=== PATIENT | male | born 1995 | race Caucasian/White ===

== ENCOUNTER 2018-11-15 09:16 | Emergency (ER) | payer MEDICAID ==
--- NOTE | 2018-11-15 09:23 | EDPHY ---
H & P Stated Complaint: st Time Seen by Provider: 11/15/18 09:22 HPI/ROS: CHIEF COMPLAINT: Sore throat, referred to ED secondary to leukocytosis HISTORY OF PRESENT ILLNESS: The patient has had a several week history of sore throat. He was seen at urgent care found to be strep negative. He completed 10 days of antibiotics. After he stopped his antibiotics he had recurrent sore throat. He was seen at urgent care again yesterday and reportedly had a negative mono test. The patient was started on steroids. They contacted him today secondary to a leukocytosis which was noted on outpatient labs. REVIEW OF SYSTEMS: A comprehensive 10 point review of systems is otherwise negative aside from elements mentioned in the history of present illness. Source: Patient Exam Limitations: No limitations - Personal History Current Tetanus/Diphtheria Vaccine: Yes Current Tetanus Diphtheria and Acellular Pertussis (TDAP): Yes - Medical/Surgical History Hx Asthma: No Hx Chronic Respiratory Disease: No Hx Diabetes: No Hx Cardiac Disease: No Hx Renal Disease: No Hx Cirrhosis: No Hx Alcoholism: No Hx HIV/AIDS: No Hx Splenectomy or Spleen Trauma: No Other PMH: anxiety, - Social History Smoking Status: Never smoked - Physical Exam Exam: General Appearance: Alert, no distress Eyes: Pupils equal and round no pallor or injection ENT, Mouth: Minimal pharyngeal erythema, no peritonsillar swelling or mass, no stridor, no trismus Respiratory: There are no retractions, lungs are clear to auscultation Cardiovascular: Regular rate and rhythm Gastrointestinal: Abdomen is soft and nontender, no masses, bowel sounds normal Neurological: 5/5 strength noted all 4 extremities, normal neurologic examination Skin: Warm and dry, no rashes Musculoskeletal: Neck is supple nontender, no meningeal symptoms Extremities: symmetrical, full range of motion Constitutional: Initial Vital Signs Temperature (C) 36.9 C 11/15/18 09:19 Heart Rate 124 H 11/15/18 09:19 Respiratory Rate 16 11/15/18 09:19 Blood Pressure 101/79 11/15/18 09:19 O2 Sat (%) 97 11/15/18 09:19 O2 Delivery Mode Room Air Allergies/Adverse Reactions: No Known Allergies Allergy (Unverified 11/15/18 09:36) Home Medications: Medication Instructions Recorded Ibuprofen 11/15/18 Ranitidine HCl 11/15/18 Sertraline HCl 11/15/18 Medical Decision Making ED Course/Re-evaluation: The patient is nontoxic well-appearing. He had an IV established. He received a L normal saline. I reviewed his outpatient laboratory studies. The patient has minimal pharyngeal erythema without evidence of a peritonsillar mass or swelling. The patient does have a decrease in his white blood cell count today. The patient also recently started steroids for pharyngitis. The patient's liver function tests are within normal limits. The patient has no clinical evidence of meningitis. Patient has a normal venous lactic acid. He has a reassuring procalcitonin. Blood cultures have been ordered for completeness sake. I do feel the patient can continue to manage his symptoms as an outpatient. He will be discharged home with customary aftercare instructions and return precautions. The patient is advised to follow up with our on-call Ear Nose Throat physician for any ongoing symptoms. Differential Diagnosis: Differential diagnosis considered includes pharyngitis, mononucleosis, peritonsillar abscess, viral syndrome - Data Points Laboratory Results: Laboratory Results 11/15/18 09:40 11/15/18 09:40 11/15/18 11/15/18 11/15/18 10:55 09:40 09:40 WBC RBC Hgb Hct MCV MCH MCHC RDW Plt Count MPV Neut % (Auto) Lymph % (Auto) Faulkner % (Auto) Eos % (Auto) Baso % (Auto) Nucleat RBC Rel Count Absolute Neuts (auto) Absolute Lymphs (auto) Absolute Monos (auto) Absolute Eos (auto) Absolute Basos (auto) Absolute Nucleated RBC Immature Gran % Seg Neutrophils % Band Neutrophils % Lymphocytes % Monocytes % Eosinophils % Basophils % Metamyelocytes % Myelocytes % Promyelocytes % Blast Cells % Immature Gran # Absolute Seg Neuts Absolute Band Neuts Absolute Lymphocytes Absolute Monocytes Absolute Eosinophils Absolute Basophils Absolute Metamyelocyte Absolute Myelocytes Absolute Promyelocytes Absolute Plasma Cells Nucleated RBCs RBC/WBC/PLT Morphology Absolute Blast Cells Plasma Cells % Platelet Estimate VBG Lactic Acid 1.1 mmol/L mmol/L (0.7-2.1) Sodium Potassium Chloride Carbon Dioxide Anion Gap BUN Creatinine Estimated GFR Glucose Calcium Total Bilirubin 1.2 mg/dL mg/dL (0.1-1.4) Conjugated Bilirubin 0.1 mg/dL mg/dL (0.0-0.5) Unconjugated Bilirubin 1.1 mg/dL mg/dL (0.0-1.1) AST 26 IU/L IU/L (17-59) ALT 49 IU/L IU/L (21-72) Alkaline Phosphatase 62 IU/L IU/L (38-126) Total Protein 6.9 g/dL g/dL (6.3-8.2) Albumin 4.3 g/dL g/dL (3.5-5.0) Procalcitonin 0.19 ng/mL H ng/mL (0.02-0.10) EBV Capsid Ag IgG Ab EBV Capsid Ag IgM Ab EBV Nuclear Antigen Ab EBV Interpretation 11/15/18 11/15/18 11/15/18 09:40 09:40 09:40 WBC 24.63 10^3/uL H 10^3/uL (3.80-9.50) RBC 5.09 10^6/uL 10^6/uL (4.40-6.38) Hgb 15.3 g/dL g/dL (13.7-17.5) Hct 45.8 % % (40.0-51.0) MCV 90.0 fL fL (81.5-99.8) MCH 30.1 pg pg (27.9-34.1) MCHC 33.4 g/dL g/dL (32.4-36.7) RDW 12.0 % % (11.5-15.2) Plt Count 245 10^3/uL 10^3/uL (150-400) MPV 10.0 fL fL (8.7-11.7) Neut % (Auto) Not Reported Lymph % (Auto) Not Reported Faulkner % (Auto) Not Reported Eos % (Auto) Not Reported Baso % (Auto) Not Reported Nucleat RBC Rel Count Not Reported Absolute Neuts (auto) Not Reported Absolute Lymphs (auto) Not Reported Absolute Monos (auto) Not Reported Absolute Eos (auto) Not Reported Absolute Basos (auto) Not Reported Absolute Nucleated RBC Not Reported Immature Gran % Not Reported Seg Neutrophils % 93.0 % % Band Neutrophils % 0.0 % % Lymphocytes % 4.0 % % Monocytes % 3.0 % % Eosinophils % 0.0 % % Basophils % 0.0 % % Metamyelocytes % 0.0 % % Myelocytes % 0.0 % % Promyelocytes % 0.0 % % Blast Cells % 0.0 % % Immature Gran # Not Reported Absolute Seg Neuts 22.91 10^3/uL H 10^3/uL (1.70-6.50) Absolute Band Neuts 0.00 10^3/uL 10^3/uL (0.00-0.70) Absolute Lymphocytes 0.99 10^3/uL L 10^3/uL (1.00-3.00) Absolute Monocytes 0.74 10^3/uL 10^3/uL (0.30-0.80) Absolute Eosinophils 0.00 10^3/uL L 10^3/uL (0.03-0.40) Absolute Basophils 0.00 10^3/uL L 10^3/uL (0.02-0.10) Absolute Metamyelocyte 0.00 10^3/mL 10^3/mL (0.00-0.00) Absolute Myelocytes 0.00 10^3/mL 10^3/mL (0.00-0.00) Absolute Promyelocytes 0.00 10^3/uL 10^3/uL (0.00-0.00) Absolute Plasma Cells 0.00 10^3/uL 10^3/uL (0.00-0.00) Nucleated RBCs 0 /100 WBC /100 WBC (0-0) RBC/WBC/PLT Morphology NORMAL (NORMAL) Absolute Blast Cells 0.00 10^3/uL 10^3/uL (0.00-0.00) Plasma Cells % 0.0 % % Platelet Estimate ADEQUATE (ADEQ) VBG Lactic Acid Sodium 141 mEq/L mEq/L (135-145) Potassium 3.6 mEq/L mEq/L (3.5-5.2) Chloride 108 mEq/L mEq/L (97-110) Carbon Dioxide 20 mEq/l L mEq/l (22-31) Anion Gap 13 mEq/L mEq/L (6-14) BUN 14 mg/dL mg/dL (7-23) Creatinine 0.8 mg/dL mg/dL (0.7-1.3) Estimated GFR > 60 Glucose 108 mg/dL H mg/dL (70-100) Calcium 9.4 mg/dL mg/dL (8.5-10.4) Total Bilirubin Conjugated Bilirubin Unconjugated Bilirubin AST ALT Alkaline Phosphatase Total Protein Albumin Procalcitonin EBV Capsid Ag IgG Ab Pending EBV Capsid Ag IgM Ab Pending EBV Nuclear Antigen Ab Pending EBV Interpretation Pending Medications Given: Discontinued Medications Sodium Chloride (Ns) 1,000 mls @ 0 mls/hr IV EDNOW ONE; Wide Open PRN Reason: Protocol Stop: 11/15/18 09:30 Last Admin: 11/15/18 09:39 Dose: 1,000 mls Departure - Departure Disposition: Home, Routine, Self-Care Clinical Impression: Acute pharyngitis Condition: Good Instructions: Pharyngitis (ED) Additional Instructions: 1. Please continue your steroids as prescribed. 2. Tylenol and ibuprofen as needed for pain. 3. Return to the ED for markedly worsening symptoms or other concerns. 4. Please contact the emergency department in 4 days to check the results of the send out mono test. The telephone number here is [phone]. 5. Please schedule a follow-up appointment with the Ear Nose Throat physician you have been referred to for any ongoing symptoms. Referrals: Rajan Moore MD [Medical Doctor] - As per Instructions
[2018-11-15] MEDS ORDERED: NS 1,000 ML IV ONE (09:29)
[2018-11-15 09:52] LABS: PLATELET COUNT 245 10^3/uL (150-400)
[2018-11-15 11:29] VITALS: BP 115/81
== END 2018-11-15 11:28 | disposition home or self-care (01) ==
DX: J02.9 Acute pharyngitis, unspecified (principal); E86.9 Volume depletion, unspecified
CPT/HCPCS: 86664-90; 86665-90